=== PATIENT | male | born 1990 | race Hispanic/Latino ===

== ENCOUNTER 2016-08-05 17:07 | Inpatient (IN) | payer OTHER ==
[~2016-08-05] VITALS: Ht 180.3 cm; Wt 99.2 kg
[2016-08-05] MEDS ORDERED: FLUT11IN INH (17:20)
[2016-08-05] MEDS ORDERED: MELA5TAB14 PO (18:18)
[2016-08-05] MEDS ORDERED: ACET50TAOT PO (18:18)
[2016-08-05 19:03] LABS: MEAN CORPUSCULAR HEMOGLOBIN 30.9 pg (27.0-33.0); MEAN CORPUSCULAR HGB CONC 34.6 g/dl (32.0-36.5); MEAN CORPUSCULAR VOLUME 89.4 fl (80.0-96.0); RED CELL DISTRIBUTION WIDTH 13.5 % (11.5-14.5); WHITE BLOOD COUNT 4.2 K/mm3 (4.0-10.0)
[2016-08-05 19:44] LABS: ALBUMIN 3.8 GM/DL (3.2-5.2); ALBUMIN/GLOBULIN RATIO 1.23 (1.00-1.93); ALKALINE PHOSPHATASE 56 U/L (45-117); ALT/SGPT 31 U/L (12-78); ANION GAP 5 MEQ/L (8-16); AST/SGOT 14 U/L (15-37); BILIRUBIN,DIRECT 0.3 MG/DL (0.0-0.2); BILIRUBIN,TOTAL 1.5 MG/DL (0.2-1.0); BLOOD UREA NITROGEN 11 MG/DL (7-18); CALCIUM LEVEL 8.7 MG/DL (8.5-10.1); CARBON DIOXIDE LEVEL 29 MEQ/L (21-32); CHLORIDE LEVEL 104 MEQ/L (98-107); CREATININE FOR GFR 1.15 MG/DL (0.70-1.30); GLOMERULAR FILTRATION RATE > 60.0 (>60); GLUCOSE, FASTING 99 MG/DL (70-105); POTASSIUM SERUM 3.7 MEQ/L (3.5-5.1); SODIUM LEVEL 138 MEQ/L (136-145); TOTAL PROTEIN 6.9 GM/DL (6.4-8.2)
[2016-08-05 19:54] LABS: METHADONE URINE NEGATIVE (NEGATIVE)
[2016-08-05] MEDS ORDERED: OLANZapine ORAL DISINTEGRATING TAB 5MG PO PRN (20:45)
[2016-08-05] MEDS ORDERED: MOM 30ML SUSPENSION UDC PO PRN (20:45)
[2016-08-05] MEDS ORDERED: ACETAMINOPHEN TAB 650MG DOSE (2X325MG) PO PRN (20:45)
[2016-08-05] MEDS ORDERED: MAALOX 30 ML SUSP *UDC PO PRN (20:45)
[2016-08-05 21:52] VITALS: BP 123/76
[2016-08-06 06:08] VITALS: BP 121/55
[2016-08-06] MEDS: NICOTINE 7 MG/24 HR TRANSDERMAL TD SCH (08:33)
--- NOTE | 2016-08-06 08:55 | HPEPDOC ---
Medical History and Physical Date of Admission Aug 05, 2016 at 20:35 History and Physical PCP: [facility] ATTENDING: Dr. Ford Colin HPI: 26yoM admitted to [facility] for adjustment disorder with depressed mood, being medically examined today. No acute medical complaints today. Denies any fevers, chills, weakness, fatigue, BUCIO, CP, SOB, cough, palpitations, abdominal pain, N/V /D or changes in bowel or bladder habits. PMHx: Insomnia Anxiety PSHX: Tonsillectomy Vasectomy SOCHX: Resides in: [place] Marital Status: Kids: Four Employment: Active duty Tobacco use: 3-4 per day ETOH: To 2 on weekends Illicit Drugs: Denies IV Drug Use: Denies Tattoos done unprofessionally: 2 FAMHX: Mother: Alive, diabetes Father: Alive, heart disease Siblings: 2 brothers, 2 sisters Alive, well Children: Alive, well Unexpected deaths due to medical reasons: None. ROS: As noted in HPI, otherwise 11pt ROS of systems reviewed and unremarkable. PE: GEN: 26 yo M, appears stated age. Well-nourished, well developed. No acute distress. Alert and oriented x 3. Pleasant, interactive. HEENT: Normocephalic, atraumatic. Pupils are equal, round, and reactive to light. Extraocular movements are intact. No nystagmus appreciated. Sclera are nonicteric. Conjunctiva without injection. Nose midline. Nasal turbinates without bogginess. EACs both patent BL. TMs both visualized and zayas with good cone of light, no bulging or erythema. No facial asymmetry. Moist mucous membranes. Dentition fair. Pharynx pink and moist, no cobblestoning. Neck supple , trachea midline. No lymphadenopathy or thyromegaly appreciated. CHEST: Regular rate and rhythm, +S1, +S2 LUNGS: Clear to auscultation bilaterally. No wheezes, rales, or rhonchi. Breathing appears symmetric and easy. Patient is speaking in full sentences. No accessory muscle use. ABD: Round, soft, non-tender, non-distended. +Bowel sounds throughout. No rebound or guarding. No costovertebral angle tenderness. EXT: Pulses 2+ bilaterally dorsalis pedis and radial. No lower extremity edema appreciated. SKIN: [place], dry, warm. Capillary refill <2sec. No rashes. NEURO: Alert and oriented x 3. Cranial nerves III-XII are intact. No focal deficits appreciated. EKG: Pending. A&P: 26yoM admitted to [facility] for adjustment disorder with depressed mood 1. Psych. Plan per Psychiatry. Obtain baseline EKG to assure the safety of psychiatric medications as they can prolong the QT interval. 2. Nicotine dependence. Patch available. 3. Tattoo done unprofessionally. Patient declines HIV/hepatitis screening at this time stating screening was negative 10/09. 4. Follow up with PCP on discharge. 5. Staff member William present throughout exam. Vital Signs Vital Signs Date Time Temp Pulse Resp B/P (MAP) Pulse Ox O2 Delivery O2 Flow Rate FiO2 08/06/16 06:08 97.4 55 18 121/55 (77) 08/05/16 21:52 Room Air 08/05/16 21:40 97 Laboratory Data Labs 24H Laboratory Tests 2 08/05/16 18:52: Anion Gap 5L, Glomerular Filtration Rate > 60.0, Calcium Level 8.7, Aspartate Amino Transf (AST/SGOT) 14L, Alanine Aminotransferase (ALT/SGPT) 31, Alkaline Phosphatase 56, Total Bilirubin 1.5H, Direct Bilirubin 0.3H, Total Protein 6.9, Albumin 3.8, Albumin/Globulin Ratio 1.23, Thyroid Stimulating Hormone (TSH) 0.468, Salicylates Level < 1.7L, Acetaminophen Level < 2.0L, Ethyl Alcohol Level < 0.003 08/05/16 19:15: Urine Amphetamines Screen NEGATIVE, Urine Benzodiazepines Screen NEGATIVE, Urine Opiates Screen NEGATIVE, Urine Methadone Screen NEGATIVE, Urine Barbiturates Screen NEGATIVE, Urine Phencyclidine Screen NEGATIVE, Urine Cocaine Metabolite Screen NEGATIVE, Urine Cannabinoids Screen NEGATIVE CBC/BMP Laboratory Tests 08/05/16 18:52 Red Blood Count 4.62, Mean Corpuscular Volume 89.4, Mean Corpuscular Hemoglobin 30.9, Mean Corpuscular Hemoglobin Concent 34.6, Red Cell Distribution Width 13.5 Home Medications Scheduled PRN Acetaminophen (Acetaminophen) 500 Mg Tab, 500 MG PO for PAIN Melatonin (Melatonin) 5 Mg Tab, 5 MG PO QHS PRN for SLEEP Allergies Coded Allergies: No Known Drug Allergy (Verified Allergy, Unknown, 08/05/16) Lakisha Nichols Aug 06, 2016 08:55
[2016-08-06] MEDS: VENLAFAXINE **XR** 37.5 MG CAPSULE PO SCH (10:30)
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
[2016-08-06 18:24] VITALS: BP 135/62
[2016-08-06] MEDS: traZODone 50 MG TAB PO PRN (22:31)
--- NOTE | 2016-08-07 05:58 | ECGEPIP ---
Stationary ECG Study [facility] Test Date: 2016-08-06 Pat Name: NO MATTHEW Department: Room: [place] [address] Gender: M Data Integration Architect: FREDRICK : 1990 Requested By: Lakisha Nichols Order Number: [id number] Reading MD: Talat Ceballos Measurements Intervals [place] Rate: 52 P: 31 IN: 204 QRS: 32 QRSD: 98 T: 17 QT: 409 QTc: 382 Interpretive Statements Sinus bradycardia with sinus arrhythmia Otherwise normal EKG Comparison tracing not on file Electronically Signed On 08-07-2016 5:58:02 EDT by Talat Ceballos
[2016-08-07 06:20] VITALS: BP 133/58
[2016-08-07] MEDS: NICOTINE 7 MG/24 HR TRANSDERMAL TD SCH (08:27)
[2016-08-07] MEDS: VENLAFAXINE **XR** 37.5 MG CAPSULE PO SCH (08:27)
[2016-08-07 18:10] VITALS: BP 127/74
[2016-08-07] MEDS: traZODone 50 MG TAB PO PRN (22:07)
[2016-08-08 06:42] VITALS: BP 115/71
[2016-08-08] MEDS: NICOTINE 7 MG/24 HR TRANSDERMAL TD SCH (08:24)
[2016-08-08] MEDS: VENLAFAXINE **XR** 75MG CAPSULE PO SCH (08:24)
--- NOTE | 2016-08-08 15:08 | IPN ---
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 SUBJECTIVE: "I feel about the same". OBJECTIVE: No major changes from yesterday. The patient is tolerating well the medication and denies side effects. The patient reports that he slept better last night. There is no evidence of psychotic symptoms. The patient is motivated for treatment. Is able to contract for safety here in the unit, but continues to have intermittent suicidal thoughts. MENTAL STATUS EXAM: The patient is dressed in [facility]. The patient is cooperative during the interview. Has fair eye contact. Speech is soft and monotone. Mood is depressed and anxious. Affect is restricted. No delusions or hallucinations. Memory, attention and concentration are fair. The patient continues with intermittent suicidal thoughts. No homicidal ideation. Insight and judgment is limited. ASSESSMENT: 1. Depression. 2. Suicidal ideation. PLAN: 1. Increase Effexor XR to 75 mg by mouth every a.m. 2. Continue trazodone 50 mg by mouth at bedtime as needed for insomnia. 3. Continue close monitoring. 4. Continue medication management, individual and group therapy.
[2016-08-08 18:00] VITALS: BP 118/66
--- NOTE | 2016-08-08 22:55 | IPN ---
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 SUBJECTIVE: "I feel about the same". OBJECTIVE: No major changes from yesterday. The patient denies side effects from the medication. No evidence of psychotic symptoms. The patient is able to contract for safety during the interview. Affect appears to be improving. He is less psychomotor retarded. MENTAL STATUS EXAM: The patient is dressed in [facility]. The patient is cooperative during the exam. Speech is slow and soft, but improving. Mood is depressed and anxious, but also improving. Affect is restricted. No delusions or hallucinations. Memory, attention and concentration are fair. The patient is able to contract for safety during the interview. Insight and judgment is limited. ASSESSMENT: 1. Depression. 2. Suicidal ideation. PLAN: 1. Continue with Effexor 75 mg by mouth every a.m.. 2. Continue with trazodone 50 mg by mouth at bedtime as needed for insomnia. 3. Continue medication management, individual and group therapy.
[2016-08-09 06:39] VITALS: BP 122/65
[2016-08-09] MEDS: VENLAFAXINE **XR** 75MG CAPSULE PO SCH (08:46)
[2016-08-09] MEDS: NICOTINE 7 MG/24 HR TRANSDERMAL TD SCH (08:46)
[2016-08-09 18:00] VITALS: BP 126/62
[2016-08-09] MEDS: traZODone 50 MG TAB PO PRN (22:44)
--- NOTE | 2016-08-10 00:16 | IPN ---
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 SUBJECTIVE: "I'm feeling better." OBJECTIVE: Patient is improving slowly. Patient is denying any side effect from the medication. He is sleeping well with the help of trazodone. No evidence of psychotic symptoms. He is motivated for treatment. His psychomotor retardation has improved. MENTAL STATUS EXAMINATION: Patient is dressed in [facility]. Patient is calm and cooperative. His speech is normal in rate, volume, and articulation. Mood is depressed and anxious, but improving. Affect is restricted. No delusions or hallucinations. Memory, attention and concentration are fair. Patient is able to contract for safety during his hospitalization. Insight and judgment is fair. ASSESSMENT: 1. Depression. 2. Suicidal ideation. PLAN: 1. Continue Effexor XR 75 mg by mouth every morning. 2. Continue trazodone 50 mg by mouth nightly as needed for insomnia. 3. Continue medication management, individual and group therapy.
[2016-08-10 06:34] VITALS: BP 111/49
[2016-08-10] MEDS: VENLAFAXINE **XR** 75MG CAPSULE PO SCH (09:25)
[2016-08-10] MEDS: NICOTINE 7 MG/24 HR TRANSDERMAL TD SCH (09:25)
[2016-08-10 18:09] VITALS: BP 132/68
[2016-08-11 06:25] VITALS: BP 148/67
[2016-08-11] MEDS: VENLAFAXINE **XR** 75MG CAPSULE PO SCH (08:36)
[2016-08-11] MEDS: NICOTINE 7 MG/24 HR TRANSDERMAL TD SCH (08:36)
[2016-08-11 18:00] VITALS: BP 140/70
[2016-08-12 07:05] VITALS: BP 133/71
[2016-08-12] MEDS: VENLAFAXINE **XR** 75MG CAPSULE PO SCH (08:55)
[2016-08-12] MEDS: NICOTINE 7 MG/24 HR TRANSDERMAL TD SCH (09:00)
[2016-08-12] MEDS ORDERED: VENL75CA PO (09:40)
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
== END 2016-08-12 12:00 | disposition home or self-care (01) | DRG 881 ==
LOC: M ED 19:32 → M ED INP 20:35 → M PSY 21:49
PROVIDERS: ADMIT Psychiatry & Neurology Psychiatry; ATTEND Psychiatry & Neurology Psychiatry
DX: F32.9 Major depressive disorder, single episode, unspecified (principal); Z62.810 Personal history of physical and sexual abuse in childhood; F17.200 Nicotine dependence, unspecified, uncomplicated

== ENCOUNTER 2017-04-04 13:36 | Emergency (ER) | payer OTHER | END 2017-04-04 15:31 | disposition home or self-care (01) | LOC: M ED 13:36 | DX: S13.4XXA Sprain of ligaments of cervical spine, initial encounter (principal); V48.5XXA Car driver injured in noncollision transport accident in traffic accident, initial encounter; Y92.410 Unspecified street and highway as the place of occurrence of the external cause; Y93.9 Activity, unspecified; Z87.891 Personal history of nicotine dependence; Z79.899 Other long term (current) drug therapy | CPT/HCPCS: 99282 ==